=== PATIENT | female | born 1980 | race Caucasian/White ===

== ENCOUNTER 2016-11-13 20:47 | Emergency (ER) | payer OTHER ==
[~2016-11-13] VITALS: Ht 167.6 cm; Wt 53.2 kg
[~2016-11-13 20:47] MED LIST: ALPRAZOLAM0.5 MG PO; AMOXICILLIN500 M1 PO; ATARAX,VISTARIL50 MG PO; BUPROPION HCL75 MG PO; CIPRO500 MG PO; CYMBALTA30 MG PO; DIFLUCAN200 MG PO; FLEXERIL10 MG PO; KLONOPIN0.5 M1 PO; KLONOPIN1 MG PO; KLONOPIN2 MG PO; MOTRIN600 MG PO; MUCINEX DM ER1 EACH PO; NAPROSYN500 MG PO; PAXIL10 MG PO; PROVENTIL,2.5 MG/0.5 IH; PYRIDIUM200 MG PO; TESSALON PERLE100 MG PO; TRAMADOL HCL50 MG PO; TYLENOL REGULA325 MG PO; TYLENOL WITH C1 EACH PO; ULTRACET1 TABLET PO; XANAX0.5 MG PO; ZOFRAN4 MG PO
[2016-11-13 21:22] LABS: ADD MIUA? YES; BILIRUBIN NEGATIVE; BLOOD MODERATE; COLOR YELLOW ((YELLOW)); GLUCOSE (STRIP) NEGATIVE; KETONES NEGATIVE; LEUKOCYTES LARGE; NITRITE POSITIVE; PROTEIN (STRIP) NEGATIVE; SPECIFIC GRAVITY 1.018 (1.000-1.030); UROBILINOGEN 0.2 MG/DL (0.2-1.0)
[2016-11-13 21:34] LABS: HEMATOCRIT 39.6 % (36.0-46.0); MCH 30.6 PG (29.0-34.0); MCHC 33.6 G/DL (30.0-36.0); MCV 91.2 FL (83-99); MEAN PLAT.VOLUME 9.1 uM^3 (9.5-12.4); PLATELET COUNT 212 K/uL (156-360); RBC DIS.WIDTH-CV 11.8 % (11.8-14.6); RBC DIS.WIDTH-SD 39.4 % (39-53); RED BLOOD COUNT 4.34 M/uL (3.80-5.20); WHITE BLOOD COUNT 6.7 K/uL (4.1-10.2)
[2016-11-13 21:43] LABS: BACTERIA 3+ /HPF; CASTS NONE SEEN /LPF; CRYSTALS NONE SEEN; EPITHELIAL CELLS RARE /HPF; MUCUS NONE SEEN /LPF; RED BLOOD CELLS 15-20 /HPF (0-5); UCUL ADDED? YES; WHITE BLOOD CELLS TNTC /HPF (0-5)
[2016-11-13 21:47] LABS: CHLORIDE 107 mEq/L (99-109); POTASSIUM 3.7 mEq/L (3.7-5.4); SODIUM 140 mEq/L (136-147)
[2016-11-13 21:50] LABS: GLUCOSE 90 mg/dL (70-99)
[2016-11-13 21:51] LABS: ANION GAP 8 MEQ/L (2-14); TOTAL BILIRUBIN 0.2 mg/dL (0.0-1.0)
[2016-11-13 21:53] LABS: ALKALINE PHOSPHATASE 64 IU/L (3-129); GFR ESTIMATE (CALCULATED) > 59 mL/min/
[2016-11-13 21:54] LABS: UREA NITROGEN (BUN) 13 mg/dL (9-23)
[2016-11-13 22:03] LABS: QUANTITATIVE HCG < 4.0 MIU/ML
[2016-11-13] MEDS ORDERED: PYRIDIUM200 MG PO (22:42)
[2016-11-13] MEDS ORDERED: KEFLEX500 MG PO (22:42)
[2016-11-13] MEDS ORDERED: MOTRIN800 MG PO (22:42)
[2016-11-13] MEDS ORDERED: ZOFRAN ODT4 MG PO (22:42)
[2016-11-13 23:00] VITALS: BP 127/74
== END 2016-11-13 23:11 | disposition home or self-care (01) ==
LOC: EME 20:47
DX: N39.0 Urinary tract infection, site not specified (principal); R11.0 Nausea; N63 Unspecified lump in breast; F17.200 Nicotine dependence, unspecified, uncomplicated
CPT/HCPCS: 80053; 81003; 84702; 85027; 87077; 87086; 87186; 99281; 99284; J0696; J1885

== ENCOUNTER 2016-11-26 11:39 | Emergency (ER) | payer OTHER ==
[~2016-11-26] VITALS: Ht 167.6 cm; Wt 53.1 kg
[~2016-11-26 11:39] MED LIST changes: +KEFLEX500 MG PO; +MOTRIN800 MG PO; +ZOFRAN ODT4 MG PO
[2016-11-26 14:25] LABS: ADD MIUA? YES; BILIRUBIN NEGATIVE; BLOOD SMALL; COLOR YELLOW ((YELLOW)); GLUCOSE (STRIP) NEGATIVE; KETONES NEGATIVE; LEUKOCYTES NEGATIVE; NITRITE NEGATIVE; PROTEIN (STRIP) NEGATIVE; SPECIFIC GRAVITY 1.016 (1.000-1.030); UROBILINOGEN 0.2 MG/DL (0.2-1.0)
[2016-11-26 14:34] LABS: AMPHETAMINE NEGATIVE (500 ng/mL); BARBITURATES NEGATIVE (200 ng/mL); BENZODIAZEPINES NEGATIVE (150 ng/mL); COCAINE NEGATIVE (150 ng/mL); INTERNAL CONTROLS VALID? YES; METHADONE NEGATIVE (200 ng/mL); METHAMPHETAMINE NEGATIVE (500 ng/mL); OPIATES (MORPHINE) NEGATIVE (100 ng/mL); OXYCODONE NEGATIVE (100 ng/mL); PHENCYCLIDINE NEGATIVE (25 ng/mL); PROPOXYPHENE NEGATIVE (300 ng/mL); THC CANNABINOIDS NEGATIVE (50 ng/mL); TRICYCLIC ANTIDEPRESSANTS NEGATIVE (300 ng/mL)
[2016-11-26 14:35] LABS: BACTERIA RARE /HPF; EPITHELIAL CELLS 1+ /HPF; HYALINE CASTS 0-5 /LPF; MUCUS TRACE /LPF; WHITE BLOOD CELLS 0-5 /HPF (0-5)
[2016-11-26 14:40] LABS: HEMATOCRIT 38.5 % (36.0-46.0); MCHC 33.5 G/DL (30.0-36.0); MCV 92.5 FL (83-99); MEAN PLAT.VOLUME 9.2 uM^3 (9.5-12.4); PLATELET COUNT 215 K/uL (156-360); RBC DIS.WIDTH-SD 40.9 % (39-53); RED BLOOD COUNT 4.16 M/uL (3.80-5.20); WHITE BLOOD COUNT 5.4 K/uL (4.1-10.2)
[2016-11-26 14:48] LABS: CHLORIDE 106 mEq/L (99-109); POTASSIUM 3.7 mEq/L (3.7-5.4); SODIUM 139 mEq/L (136-147)
[2016-11-26 14:50] LABS: GLUCOSE 101 mg/dL (70-99)
[2016-11-26 14:51] LABS: ANION GAP 9 MEQ/L (2-14)
[2016-11-26 14:52] LABS: TOTAL BILIRUBIN 0.6 mg/dL (0.0-1.0)
[2016-11-26 14:53] LABS: ALKALINE PHOSPHATASE 58 IU/L (3-129)
[2016-11-26 14:54] LABS: GFR ESTIMATE (CALCULATED) > 59 mL/min/
[2016-11-26 14:55] LABS: UREA NITROGEN (BUN) 10 mg/dL (9-23)
[2016-11-26 14:57] LABS: LIPASE 29 U/L (1.0-51.0)
[2016-11-26 15:03] LABS: QUANTITATIVE HCG < 4.0 MIU/ML
[2016-11-26] MEDS ORDERED: ATARAX,VISTARIL50 MG PO (15:10)
[2016-11-26] MEDS ORDERED: NAPROSYN500 MG PO (15:18)
[2016-11-26 15:28] VITALS: BP 111/73
== END 2016-11-26 15:32 | disposition home or self-care (01) ==
LOC: EME 11:39
PROVIDERS: Nurse Practitioner Family
DX: S40.022A Contusion of left upper arm, initial encounter (principal); S00.83XA Contusion of other part of head, initial encounter; S06.9X9A Unspecified intracranial injury with loss of consciousness of unspecified duration, initial encounter; Y04.0XXA Assault by unarmed brawl or fight, initial encounter; Y07.01 Husband, perpetrator of maltreatment and neglect; F31.9 Bipolar disorder, unspecified; F41.9 Anxiety disorder, unspecified; F17.200 Nicotine dependence, unspecified, uncomplicated; M54.2 Cervicalgia; R07.9 Chest pain, unspecified; M79.672 Pain in left foot
CPT/HCPCS: 70450; 70486; 71020; 72040; 72100; 73630; 80053; 81003; 83690; 84702; 85027; 90832; 99281; 99285